=== PATIENT | male | born 1985 | race Caucasian/White ===

== ENCOUNTER 2017-02-18 23:29 | Emergency (ER) | payer SELFPAY ==
[~2017-02-18] VITALS: Ht 167.6 cm; Wt 88.5 kg
[2017-02-18 23:42] VITALS: BP 145/96
[2017-02-19] MEDS ORDERED: TETRACAINE HCL/PF 0.5% OPTH 4 ML BTL OP ONE (01:15)
--- NOTE | 2017-02-19 01:15 | NUR ---
PT BIB SELF C/O RT EYE IRRITATION AND PAIN S/P INJURED WHILE WELDING A PIECE OF METAL. NO MED HX. RT EYE RED/WATER/MILD SWELLING AROUND RT EYELID NOTED. EYE DROP PAIN MEDS GIVEN BY HONG ROMAN AT THIS TIME. PT STS "MY PAIN IS SO MUCH BETTER NOW." PAIN 0/10-POST PAIN MEDS-ER MD NOTIFTED.
[2017-02-19] MEDS ORDERED: TETRACAINE HCL/PF 0.5% OPTH 4 ML BTL ONE (01:19)
[2017-02-19] MEDS ORDERED: FLUORESCEIN OPTH STRIP 1 MG ONE (01:20)
[2017-02-19] MEDS ORDERED: GENTAMICIN OP 0.3% 10.5 MG/3.5 GM TUBE OP ONE (01:30)
--- NOTE | 2017-02-19 01:40 | NUR ---
ER MD DR GARCIA AT BEDSIDE.
--- NOTE | 2017-02-19 02:14 | NUR ---
PATIENT ELOPED FROM FACILITY. DISCHARGE INSTRUCTIONS NOT GIVEN TO PATIENT. DR. GARCIA NOTIFIED.
== END 2017-02-19 02:14 | disposition left against medical advice (07) ==
LOC: MED 23:29
DX: S05.01XA Injury of conjunctiva and corneal abrasion without foreign body, right eye, initial encounter (principal); I10 Essential (primary) hypertension; X58.XXXA Exposure to other specified factors, initial encounter; Y93.89 Activity, other specified; Y92.89 Other specified places as the place of occurrence of the external cause; Y99.8 Other external cause status